=== PATIENT | male | born 1950 | race Caucasian/White ===

== ENCOUNTER 2018-04-30 21:39 | Inpatient (IN) | payer BC ==
--- NOTE | 2018-04-30 22:41 | RAD ---
CHEST TWO VIEWS: 04/30/18 HISTORY: Productive cough. COMPARISON: A 02/05/17 study. Heart size is borderline. There is increased density in the left base suggesting some left lower lobe infiltrate. The right lung appears clear. IMPRESSION: Left lower lobe infiltrate. POS: [facility]
[2018-04-30 22:45] LABS: ALT (SGPT) 23 U/L (8-55); AST (SGOT) 56 U/L (5-34); Albumin 1.7 g/dL (3.4-4.8); Alkaline Phosphatase 122 U/L (40-150); Anion Gap 6 mmol/L (10-20); Anisocytosis SLIGHT = 6-15 cells (100X) (0-5/hpf); BUN (Urea Nitrogen) 11 mg/dL (8.4-25.7); Band 1 % (5-11); Bilirubin, Total 2.2 mg/dL (0.2-1.2); Calc. Creatinine Clearance 0 mL/min (70-130); Calcium 9.8 mg/dL (7.8-10.44); Carbon Dioxide 23 mmol/L (23-31); Chloride 99 mmol/L (98-107); Eosinophils 6 % (0-10); Estimated GFR-MDRD 77; Globulin 8.7 g/dL (2.4-3.5); Glucose 127 mg/dL (80-115); Hemoglobin 10.4 g/dL (14.0-18.0); Hypochromia SLIGHT = 6-15 cells (100X) (0-5/hpf); Lymphocytes 16 % (21-51); MDiff Complete? YES; Macrocytosis SLIGHT = 6-15 cells (100X) (0-5/hpf); Mean Corpuscular HGB CONC 34.1 g/dL (32.0-36.0); Mean Corpuscular Hemoglobin 34.2 pg (27.0-31.0); Mean Platelet Volume 10.8 fL (7.4-10.4); Monocytes 4 % (0-10); Neutrophil 73 % (42-75); Platelet Count 122 thou/uL (130-400); Protein, Total 10.4 g/dL (5.8-8.1); RBC Distribution Width 13.1 % (11.5-14.5); Red Blood Cell (RBC) Count 3.05 mill/uL (4.70-6.10); Sodium 124 mmol/L (136-145); Target Cells SLIGHT = 2-5 cells (100X) (0-1/hpf)
[2018-04-30 22:46] LABS: Troponin I Less than 0.010 ng/mL (< 0.028)
[2018-04-30 23:00] LABS: Bilirubin Negative (Negative); Blood, Urine Small (Negative); Clarity Clear (Clear); Glucose, Urine (Dipstick) Negative (Negative); Leukocyte Negative (Negative); Nitrite Negative (Negative); Protein, Urine (Dipstick) Negative (Neg-Trace); pH, Urine 6.5 (5.0-9.0)
[2018-04-30 23:03] LABS: White Blood Cell (WBC) Count 9.8 thou/uL (4.8-10.8)
[2018-04-30] MEDS ORDERED: Lorazepam 1 MG TAB ONE (23:05)
[2018-04-30 23:06] LABS: Bacteria/HPF None Seen HPF (None Seen); Hyaline Casts/LPF 0-3 HYALINE CAST LPF (0-3 Hyaline); Squamous Epithelial 0-3 HPF (0-3); WBC/HPF 0-3 HPF (0-3)
[2018-04-30] MEDS ORDERED: cefTRIAXone\\ROCEPHIN 1 GM VIAL ONE ×2 (23:06→23:12)
[2018-04-30] MEDS ORDERED: Amlodipine 5 MG TAB ONE (23:06)
[2018-04-30] MEDS ORDERED: Acetaminophen 325 MG TAB ONE (23:41)
[2018-04-30] MEDS ORDERED: Nitroglycerin 0.4 MG TAB (25 Tab Bottle) ONE (23:48)
[2018-05-01] MEDS ORDERED: Furosemide 20 MG/2 ML VIAL ONE (00:01)
[2018-05-01] MEDS ORDERED: Nitroglycerin 0.4 MG TAB (25 Tab Bottle) ONE (00:01)
[2018-05-01] MEDS ORDERED: Nitroglycerin 2% Ointment 1 INCH/1 GM Packet ONE (00:02)
[2018-05-01] MEDS ORDERED: Azithromycin 500 MG VIAL ONE (00:08)
[2018-05-01] MEDS ORDERED: Ondansetron ODT 4 MG TAB SL PRN (01:22)
[2018-05-01] MEDS ORDERED: Acetaminophen 325 MG TAB PO PRN (01:22)
[2018-05-01] MEDS ORDERED: Ondansetron HCl/PF 4 MG/2 ML Vial IVP PRN (01:22)
[2018-05-01] MEDS ORDERED: Bisacodyl 5 MG TAB PO PRN (04:46)
[2018-05-01] MEDS ORDERED: Furosemide 40 MG/4 ML VIAL SLOW IVP SCH (05:00)
[2018-05-01 06:03] LABS: INR-International Normal Ratio 1.7; PTT 35.5 SEC (22.9-36.1); Prothrombin Time 19.8 SEC (12.0-14.7)
[2018-05-01 07:40] LABS: Legionella Urinary Ag Negative (Negative); Strep pneumo Urine Ag NEGATIVE (NEGATIVE)
[2018-05-01] MEDS: Ferrous Sulfate 325 MG TAB PO SCH ×2 (08:47→21:00)
[2018-05-01] MEDS: Hydrochlorothiazide 25 MG TAB PO SCH (08:47)
[2018-05-01] MEDS: Rifaximin 550 MG TAB PO SCH ×2 (08:48→20:46)
[2018-05-01] MEDS: Losartan 25 MG TAB PO SCH (08:48)
[2018-05-01] MEDS ORDERED: Famotidine/PF 20 mg/2ml Vial SLOW IVP SCH (09:00)
[2018-05-01] MEDS ORDERED: Non-Formulary Item 1 EACH (Losartan/Hydrochlorothiazide [Losartan-Hctz 100-12.5 Mg Tab] 1 PO SCH (09:00)
[2018-05-01] MEDS ORDERED: Non-Formulary Item 1 EACH (Omeprazole [Omeprazole] 20 MG) PO SCH (09:00)
--- NOTE | 2018-05-01 13:24 | CON ---
DATE OF CONSULTATION: 05/01/2018 HISTORY OF PRESENT ILLNESS: A 67-year-old gentleman sees a Dr. Osei and Dr. Sierra. His is in the room who states the patient had a cough now for several days associated with some yellow sputum. He felt bad. He has had chills and sweats. X-ray shows a left retrocardiac infiltra te. He smokes from time to time, but apparently not regularly. He denies any previous history of pneumon ia, TB or asthma. He has hepatitis unknown for a long time by doctors in [place] locally. PAST SURGICAL HISTORY: Included previous lap associated with apparently removal of his spleen, pancr eas. MEDICATIONS: From home includes, losartan, Xifaxan 550 once a day, omeprazole once a day, Zenpep onc e a day, cough syrup. He also takes Coreg 12.5 twice a day. ALLERGIES: MORPHINE. SOCIAL HISTORY: Alcohol abuse. REVIEW OF SYSTEMS: Ten-point negative. PHYSICAL EXAMINATION: GENERAL: Sats at 90 on 2 liters, temperature 98, pulse , respirations 18, blood pressure . CHEST: Extensive rhonchi and crackles bilaterally. CARDIOVASCULAR: Normal S1, S2. No gallops. ABDOMEN: Soft, no masses. LABORATORY: White count 9000, H and H 10 and 30, platelet count is 122. Sodium is 124. Electrolyte s are normal. BNP is 723. Renal function is normal. IMPRESSION: 1. Left-sided pneumonia 2. Elevated BNP. 3. Cirrhosis status post laparoscopy. PLAN: He probably can be transferred out of the MICU. Switch him to oral antibiotics. I have an ec hocardiogram to assess his LV function. Supportive care and PT. We will follow. Consultation note 70 minutes, 50% spent in direct patient care time.
--- NOTE | 2018-05-01 14:12 | PDOC.PN ---
- Subjective Encounter Start Date: 05/01/18 Encounter Start Time: 09:20 Pt seen for followup re: acute hypoxic respiratory failure. Feels better. Denies chest pain, shortness of breath, fevers or chills. Cough+, sputum+ - Objective Resuscitation Status: Resuscitation Status FULL:Full Resuscitation MAR Reviewed: Yes Vital Signs & Weight: Vital Signs (12 hours) Temp Pulse Resp BP Pulse Ox 05/01/18 11:04 99.5 F 80 18 109/56 L 94 L 05/01/18 08:00 98 05/01/18 07:14 98.9 F 80 18 110/55 L 98 05/01/18 04:00 100.0 F H 86 22 H 128/66 96 05/01/18 02:41 79 05/01/18 02:19 100.8 F H 81 27 H 100 Weight Weight 208 lb 8.917 oz I&O: 04/30/18 05/01/18 05/02/18 06:59 06:59 06:59 Intake Total 150 Output Total 100 Balance 50 Result Diagrams: 04/30/18 22:15 04/30/18 22:15 EKG Reviewed by me: Yes (Tele: NSR) Phys Exam - Physical Examination Constitutional: NAD HEENT: moist MMs, sclera anicteric, oral pharynx no lesions, 2+ tonsils Neck: no nodes, no JVD, supple, full ROM Respiratory: no rales, no rhonchi Vidal crackles Cardiovascular: RRR, no rub S1, S2 Gastrointestinal: soft, non-tender, no distention, positive bowel sounds Neurological: moves all 4 limbs Psychiatric: normal affect, A&O x 3 Dx/Plan (1) Acute respiratory failure with hypoxia Code(s): J96.01 - ACUTE RESPIRATORY FAILURE WITH HYPOXIA Status: Acute Comment: Likely a combination of pneumonia and CHF (2) Pneumonia Code(s): J18.9 - PNEUMONIA, UNSPECIFIED ORGANISM Status: Acute Comment: continue IV antibiotics as below (3) Diastolic CHF, acute Code(s): I50.31 - ACUTE DIASTOLIC (CONGESTIVE) HEART FAILURE Status: Acute Comment: continue furosemide (4) HTN (hypertension) Code(s): I10 - ESSENTIAL (PRIMARY) HYPERTENSION Status: Acute Comment: controlled (5) Cirrhosis Code(s): K74.60 - UNSPECIFIED CIRRHOSIS OF LIVER Status: Chronic Comment: probably fluid buildup from cirrhosis, continue furosemide (6) GERD (gastroesophageal reflux disease) Code(s): K21.9 - GASTRO-ESOPHAGEAL REFLUX DISEASE WITHOUT ESOPHAGITIS Status: Chronic Comment: stable (7) Heart valve vegetation Code(s): I33.0 - ACUTE AND SUBACUTE INFECTIVE ENDOCARDITIS Status: Suspected Comment: consult cardiology for ? heart valve vegetation on 2D echo - Plan * . Review of Systems - Review of Systems Constitutional: negative: fever, chills, sweats, weakness, malaise Respiratory: Cough, SOB with Excertion, Sputum. negative: Dry, Shortness of Breath, Hemoptysis, Pleuritic Pain, Wheezing Cardiovascular: negative: chest pain, palpitations, orthopnea, paroxysmal nocturnal dyspnea, edema, light headedness Gastrointestinal: negative: Nausea, Vomiting, Abdominal Pain, Diarrhea, Constipation, Melena, Hematochezia Genitourinary: negative: Dysuria, Frequency, Incontinence, Hematuria, Retention Skin: negative: Rash, Lesions, Mike, Bruising - Medications/Allergies Allergies/Adverse Reactions: Allergies Allergy/AdvReac Type Severity Reaction Status Date / Time morphine Allergy Verified 05/01/18 02:09 Medications: Current Medications Bisacodyl (Dulcolax) 10 mg PO DAILYPRN PRN PRN Reason: Constipation Ferrous Sulfate (Feosol) 325 mg PO BID [facility] Last Admin: 05/01/18 08:47 Dose: 325 mg Hydrochlorothiazide (Hydrochlorothiazide) 12.5 mg PO DAILY [facility] Last Admin: 05/01/18 08:47 Dose: 12.5 mg Azithromycin 500 mg/ Sodium (Chloride) 250 mls @ 250 mls/hr IVPB Q24HR@2359 [facility] Levofloxacin 750 mg/ Device 150 mls @ 100 mls/hr IVPB Q24HR [facility] Last Admin: 05/01/18 05:37 Dose: 150 mls Losartan Potassium (Cozaar) 100 mg PO DAILY [facility] Last Admin: 05/01/18 08:48 Dose: 100 mg Miscellaneous Medication (Pharmacy To Dose) 0 each IVPB PRN PRN PRN Reason: RENAL ABX Pharmacy to Dose Mometasone Furoate/Formoterol Fumar (Dulera 200 Mcg/5 Mcg Inhaler) 2 puff INH BID-RT [facility] Pantoprazole Sodium (Protonix) 40 mg PO DAILY [facility] Last Admin: 05/01/18 08:48 Dose: 40 mg Pneumococcal 13-Valent Conj Vacc (Prevnar) 0.5 ml IM .ONCE ONE Stop: 05/02/18 09:01 Rifaximin (Xifaxan) 550 mg PO BID [facility] Last Admin: 05/01/18 08:48 Dose: 550 mg Sodium Chloride (Flush - Normal Saline) 10 ml IVF Q12HR [facility] Sodium Chloride (Flush - Normal Saline) 10 ml IVF PRN PRN PRN Reason: Saline Flush
[2018-05-01] MEDS: Mometasone/Formoterol 120 PUFF INHALER INH SCH (19:56)
--- NOTE | 2018-05-01 20:37 | HP ---
CHIEF COMPLAINT: Shortness of breath and cough. HISTORY OF PRESENT ILLNESS: This is a 67-year-old male with past medical history of hepatitis, liver cirrhosis, abdominal hernia, hypertension, presenting with cough and shortness of breath. Per the p atient, he stated that he felt like he was coming down with the flu, however, he has not been around any sick contacts. This has been going on for a couple of days and the patient felt he was going to get worse, but progressively got worse. The patient was not able to really catch his breath. He was having shortness of breath and subjective fevers and also the patient was having some flank pain due to constant cough that he was having. Therefore, the patient went to [place] [facility] and the pat ient was evaluated. At [place], the patient's oxygen saturation was low even though the elías ent was on 4 liters. The patient was satting at 92 at that time. The patient was put on CPAP. The patient's blood pressure was elevated at the time, also had 200 systolic and the patient also had a f ever and a chest x-ray showed possible infiltrates. Therefore, the patient was transferred to our [facility] for us further workup the patient. REVIEW OF SYSTEMS: Positive for subjective fevers, malaise, shortness of breath and cough. Otherwis e documented in HPI. All other systems were reviewed and are negative. PAST MEDICAL HISTORY: Liver disease, abdominal hernia, hypertension. PAST SURGICAL HISTORY: The patient had part of his pancreas removed. FAMILY HISTORY: Reviewed and noncontributory. SOCIAL HISTORY: The patient worked at a chemical plant for years and the patient stated that he was working with a chemical called styrene, which patient inhaled a lot of this chemical and that was one of the attributing factor for his hepatitis and his liver disease. The patient also thinks that the se chemicals could be contributing to shortness of breath. The patient denies alcohol use, denies to bacco use, and denies any illicit drugs. MEDICATIONS: The patient is on; 1. Losartan/hydrochlorothiazide 100 mg/12.5 mg. 2. Xifaxan 550 mg. 3. Omeprazole 20 mg daily. 4. Zenpep 15,000 units/51,000 units/82,000 units. 5. Ferrous sulfate 325 mg b.i.d. 6. Diltiazem 30 mg/5 mL. 7. Mucinex. 8. Carvedilol 25 mg. PHYSICAL EXAMINATION: VITAL SIGNS: Blood pressure 193/104, pulse 88, respiratory rate of 24, temperature of 99.2, O2 sat o f 85 room air. GENERAL: Patient is alert, oriented, on a BiPAP machine, does not appear to be in any acute distress . HEENT: Normocephalic, atraumatic. Pupils are equal, round, and reactive to light. Extraocular move ments are intact. Pharynx is injected bilaterally, otherwise mucous membranes are moist. LUNGS: Patient do have some rales that is noted especially in the left lung. No wheezing can be lily reciated at the anterior lung lemus. CARDIAC: Positive S1 and S2, regular rate and rhythm. No murmurs, no gallops, no rubs appreciated. ABDOMEN: Nondistended, nontender, positive bowel sounds in all quadrants. No peritoneal signs. EXTREMITIES: Upper extremity; the patient has 5/5 upper extremity strength and 5/5 lower extremity s trength. No ecchymosis. No abrasions. NEUROLOGIC: Cranial nerves II through XII grossly intact. No neurologic deficit noted. SKIN: Warm, dry, and intact. PSYCHIATRIC: Alert and oriented x3. Normal affect. EKG: A 12-lead EKG is normal. The patient has normal sinus rhythm and heart rate of 93. ED COURSE: The patient was on morphine 2 mg, , nitro patch , Lasix 20 mg were given, nitro sublingual 0.4, normal saline 150, Tylenol 650 mg, DuoNeb 3 mL, ceftriaxone 1 g, Ativan 0.5, and aml odipine 5. LABORATORY DATA: WBC 9.8, hemoglobin 10.4, hematocrit 30.6, MCV 100.0, platelet count 122. PT 19.8, INR 1.7, PTT 35.5. Sodium is 124, potassium 4.0, chloride 99, carbon dioxide of 23, anion gap of 6, BUN is 11, creatinine 0.98, GFR 77, glucose 127. Lactic acid of 1.9, total bilirubin 2.2, AST 56, A LT 23. BNP 723. Urinalysis is negative. Pneumonia antigens and strep antigens are negative. IMAGING DATA: Chest x-ray showed left lower lobe infiltrate. ASSESSMENT AND PLAN: This is a 67-year-old male presenting to the hospital and been admitted for; 1. Shortness of breath likely due to pneumonia or fluid overload. At this point, we have given the patient Lasix IV. Chest x-ray shows that there is some infiltrate in the lungs and this can be a com bination of fluid or possible pneumonia. The patient is on BiPAP. We are going to change the patien t from BiPAP to nasal cannula and we will transition the patient to the regular floor if patient is a ble to tolerate nasal cannula. We started the patient on empiric antibiotics. We have Pulmonology o n consult. We will follow up with canoe inspector's recommendations. We have ordered a pneumonia pane l which everything so far has been negative. The patient is on broad coverage. Patient is on azithr omycin and Levaquin which will cover both atypical and typical bacteria. 2. Bilateral trace edema. We are highly suspicious that patient might have underlying heart issue. Therefore, at this point, we will get an echo to examine the heart and we will continue the patient on Lasix. It is also important that the patient's bilateral trace pedal edema can be due to patient' s history of cirrhosis. 3. History of chemical plant occupation. They can also be that there is some underlying pneumoconio sis since the patient stated that he has been inhaling this chemical called styrene because the patie nt used to work with these chemicals in a chemical plant. Sql Report Analyst on the case. We will follow with their recommendations. At this point, the patient is saturating well. We will continue to mon itor the patient. 4. We will continue patient on his home medications and we will continue to monitor the patient and treat the patient accordingly. 5. DVT and gastrointestinal prophylaxis. The patient's INR is 1.7. The patient has history of cirr hosis. At this point, we are not going to do any anticoagulation. We will do SCDs. 6. Macrocytic anemia. We will monitor the patient's H and H. We will do B12 and folate. 7. Hyponatremia, likely SIADH. We will monitor patient's sodium in the morning and we will follow t he trend and we will treat the patient accordingly by fluid restriction.
[2018-05-01] MEDS ORDERED: Azithromycin 500 MG in Sodium Chloride 0.9% 250 ML 250 ML IVPB SCH (23:59)
[2018-05-02 04:28] LABS: Band 36 % (5-11); Eosinophils 1 % (0-10); Hemoglobin 9.7 g/dL (14.0-18.0); Lymphocytes 12 % (21-51); MDiff Complete? YES; Macrocytosis MODERATE=16-30 cells (100X) (0-5/hpf); Mean Corpuscular HGB CONC 32.9 g/dL (32.0-36.0); Mean Corpuscular Hemoglobin 35.2 pg (27.0-31.0); Mean Platelet Volume 10.2 fL (7.4-10.4); Monocytes 5 % (0-10); Neutrophil 46 % (42-75); PLT Morphology Comment Appears Adequate; Platelet Count 126 thou/uL (130-400); RBC Distribution Width 14.4 % (11.5-14.5); Red Blood Cell (RBC) Count 2.76 mill/uL (4.70-6.10); White Blood Cell (WBC) Count 14.1 thou/uL (4.8-10.8)
[2018-05-02 04:30] LABS: ALT (SGPT) 15 U/L (8-55); AST (SGOT) 38 U/L (5-34); Albumin 1.4 g/dL (3.4-4.8); Alkaline Phosphatase 78 U/L (40-150); Anion Gap 8 mmol/L (10-20); BUN (Urea Nitrogen) 25 mg/dL (8.4-25.7); Bilirubin, Total 2.6 mg/dL (0.2-1.2); Calc. Creatinine Clearance 80 mL/min (70-130); Calcium 9.4 mg/dL (7.8-10.44); Carbon Dioxide 20 mmol/L (23-31); Chloride 99 mmol/L (98-107); Estimated GFR-MDRD 59; Globulin 6.5 g/dL (2.4-3.5); Glucose 97 mg/dL (80-115); Potassium 3.7 mmol/L (3.5-5.1); Protein, Total 7.9 g/dL (5.8-8.1); Sodium 123 mmol/L (136-145)
[2018-05-02] MEDS: Furosemide 20 MG/2 ML VIAL SLOW IVP SCH ×3 (06:25→17:39)
[2018-05-02] MEDS: Mometasone/Formoterol 120 PUFF INHALER INH SCH ×2 (06:35→19:45)
[2018-05-02] MEDS ORDERED: Prevnar 13-Val Conj/PF 0.5 ML SYRINGE IM ONE (09:00)
[2018-05-02] MEDS: Losartan 25 MG TAB PO SCH (11:05)
[2018-05-02] MEDS: Hydrochlorothiazide 25 MG TAB PO SCH (11:06)
[2018-05-02] MEDS: Rifaximin 550 MG TAB PO SCH ×2 (11:07→21:37)
[2018-05-02] MEDS: Ferrous Sulfate 325 MG TAB PO SCH ×2 (11:07→21:37)
--- NOTE | 2018-05-02 12:04 | CON ---
DATE OF CONSULTATION: 05/01/2018 REASON FOR CONSULTATION: ? vegetation. HISTORY OF PRESENT ILLNESS: Mr. Galicia is a very pleasant 67-year-old gentleman who was seen and evaluated in the past. He has a history of cirrhosis with esophageal varices. He recently presented with fevers and chills. His states this began fairly quickly. He did have subjective fevers at home in addition to productive cough. He was diagnosed with pneumonia. He underwent an echo with Doppler that showed a suggestion of vegetation versus artifact noted on the LVOT. LVEF appears normal. He has no previous history of vegetations. No significant valvular dysfunction was present. PAST MEDICAL HISTORY: As above including hypertension, venous insufficiency, partial pancreas removal. SOCIAL HISTORY: No current tobacco or alcohol use. MEDICATIONS: Include omeprazole, Zenpep, iron sulfate, diltiazem, losartan/ hydrochlorothiazide, omeprazole, Mucinex, and carvedilol. REVIEW OF SYSTEMS: Ten point review of systems is reviewed and as above, otherwise negative. PHYSICAL EXAMINATION: GENERAL: Patient is a pleasant male who is in no acute distress. The patient appears his stated age. VITAL SIGNS: Blood pressure 150/60 pulse 80, respirations 20. NEUROLOGIC: The patient is alert and oriented times 3 with no focal neurologic deficits. HEENT: Sclerae without icterus. Mouth has moist mucous membranes with normal pallor. NECK: No JVD. Carotid upstroke brisk. No bruits bilaterally. LUNGS: Clear to auscultation with unlabored respirations. BACK: No scoliosis or kyphosis. CARDIAC: Regular rate and rhythm with normal S1 and S2. No S3 or S4 noted. No significant rubs, murmurs, thrills, or gallops noted throughout the precordium. PMI is not displaced. There is no parasternal heave. ABDOMEN: Soft, nontender, nondistended. No peritoneal signs present. No hepatosplenomegaly. No abnormal striae. EXTREMITIES: 2+ femoral and 2+ dorsalis pedis pulses. No cyanosis, clubbing, or edema. SKIN: No gross abnormalities. PERTINENT LABORATORY DATA: Hemoglobin 9.7, creatinine 1.23. Albumin 1.4, globulin 6.5. IMAGING: Chest x-ray shows left lower lobe infiltrate. IMPRESSION: 1. Pneumonia. 2. ? vegetation. 3. Liver disease with cirrhosis and esophageal varices. RECOMMENDATIONS: I will ask Dr. Madsen to assess Mr. Galicia for potential KRYSTLE. At this point, I am unsure whether this is going to change his management. His blood culture so far is negative. He would be certainly increased risk of complications given esophageal varices. The patient was very reluctant to proceed if needed. Dr. Madsen did state he was going to consult with Dr. Villegas. This ? vegetation could certainly also be artifact. No significant murmur present with no significant valvular dysfunction was noted. Continue antibiotic treatment. MTDD
--- NOTE | 2018-05-02 12:10 | PDOC.CTH ---
Cardiology Progress Note - Subjective Still with mild SOB and ADAM. No CP. - Objective Vital Signs Pulse Resp 05/02/18 06:35 80 12 Weight 208 lb 8.917 oz 05/01/18 05/02/18 05/03/18 06:59 06:59 06:59 Intake Total 150 600 Output Total 100 Balance 50 600 - Physical Examination General/Neuro: alert & oriented x3 Neck: no JVD present Lungs: CTA Heart: RRR Abdomen: NT/ND Extremities: other: (no edema) - Telemetry Telemetry Rhythm: no tele - Labs Result Diagrams: 05/02/18 03:46 05/02/18 03:46 Troponin/CKMB CK-MB (CK-2) 1.0 ng/mL (0-6.6) 04/30/18 22:15 Troponin I Less than 0.010 ng/mL (< 0.028) 04/30/18 22:15 - Assessment/Plan 1. Left sided PNA 2. Nonspecific AV leaflet thickening 3. History of cirrhosis and esophageal varices NO changes today. Blood cultures still pending. Request for KRYSTLE previously made , but will discuss risk with GI first and await final culture results.
--- NOTE | 2018-05-02 13:12 | PRG ---
DATE OF SERVICE: 05/02/2018 SUBJECTIVE: He is doing well. He has less cough, less shortness of breath. He has got some blood i n his sputum. His tells me that when he walks even to the bathroom, he is weak and short of anthony ath. OBJECTIVE: VITAL SIGNS: His sats are 96 on room air, respirations 20, pulse 82, temperature 98, blood pressure 115/58. CHEST: Reveals no wheezing or crackles. CARDIAC: Normal S1 and S2. No gallops. ABDOMEN: No masses. LABORATORY DATA: Creatinine 1.23. Sodium is 123, albumin is 1.5. His AST is 38. Total bilirubin i s 2.6 and platelet count is 126. IMPRESSION: Left lower lobe pneumonia, congestive heart failure, cirrhosis. PLAN: His echocardiogram performed yesterday was suggestive of maybe a vegetation on his aortic valv e as per the report, though his EF was normal. cirrhosis. The patient is severely deconditioned. He is hyponatremic, probably from the diuretics that he is ge tting. I may consider discontinuing his Lasix and his hydrochlorothiazide. I would discontinue his Zithromax. Continue his Levaquin. Await cultures. We will follow.
--- NOTE | 2018-05-02 16:41 | PDOC.PN ---
- Subjective Encounter Start Date: 05/02/18 Encounter Start Time: 07:00 Pt sen for followup re: hyponatremia. feels better. Denies chest pain, shortness of breath, fevers or chills. Cough+, sputum+ - Objective Resuscitation Status: Resuscitation Status FULL:Full Resuscitation MAR Reviewed: Yes Vital Signs & Weight: Vital Signs (12 hours) Pulse Resp BP Pulse Ox 05/02/18 14:00 84 121/58 L 05/02/18 08:00 94 L 05/02/18 06:35 80 12 Weight Weight 208 lb 8.917 oz I&O: 05/01/18 05/02/18 05/03/18 06:59 06:59 06:59 Intake Total 150 600 Output Total 100 Balance 50 600 Result Diagrams: 05/02/18 03:46 05/02/18 03:46 Additional Labs: Labs reviewed by me Phys Exam - Physical Examination Constitutional: NAD HEENT: moist MMs, sclera anicteric, oral pharynx no lesions, 2+ tonsils Neck: no nodes, no JVD, supple, full ROM Respiratory: no wheezing, no rhonchi Vidal crackles Cardiovascular: RRR, no rub S1, S2 Gastrointestinal: soft, non-tender, no distention, positive bowel sounds Neurological: moves all 4 limbs Psychiatric: normal affect, A&O x 3 Dx/Plan (1) Hyponatremia Code(s): E87.1 - HYPO-OSMOLALITY AND HYPONATREMIA Status: Acute Comment: DC HCTZ, restrict oral fluid intake to 1500 ml/;25 hr, recheck sodium. Initiate workup with serum and urine osmolality. (2) Acute respiratory failure with hypoxia Code(s): J96.01 - ACUTE RESPIRATORY FAILURE WITH HYPOXIA Status: Acute Comment: Improving,likely due to a combination of pneumonia and CHF (3) Pneumonia Code(s): J18.9 - PNEUMONIA, UNSPECIFIED ORGANISM Status: Acute Comment: continue IV leofloxacin (4) Diastolic CHF, acute Code(s): I50.31 - ACUTE DIASTOLIC (CONGESTIVE) HEART FAILURE Status: Acute Comment: change furosemide to oral (5) HTN (hypertension) Code(s): I10 - ESSENTIAL (PRIMARY) HYPERTENSION Status: Chronic Comment: controlled (6) Cirrhosis Code(s): K74.60 - UNSPECIFIED CIRRHOSIS OF LIVER Status: Chronic Comment: on oral furosemide (7) GERD (gastroesophageal reflux disease) Code(s): K21.9 - GASTRO-ESOPHAGEAL REFLUX DISEASE WITHOUT ESOPHAGITIS Status: Chronic Comment: stable (8) Heart valve vegetation Code(s): I33.0 - ACUTE AND SUBACUTE INFECTIVE ENDOCARDITIS Status: Suspected Comment: ID consult pending re: does pt need KRYSTLE before blood culture final report? - Plan * . Review of Systems - Review of Systems Constitutional: weakness. negative: fever, chills, sweats, malaise Respiratory: Cough, SOB with Excertion, Sputum. negative: Dry, Shortness of Breath, Hemoptysis, Pleuritic Pain, Wheezing Cardiovascular: negative: chest pain, palpitations, orthopnea, paroxysmal nocturnal dyspnea, edema, light headedness Gastrointestinal: negative: Nausea, Vomiting, Abdominal Pain, Diarrhea, Constipation, Melena, Hematochezia Genitourinary: negative: Dysuria, Frequency, Incontinence, Hematuria, Retention Skin: negative: Rash, Lesions, Mike, Bruising Neurological: Weakness - Medications/Allergies Allergies/Adverse Reactions: Allergies Allergy/AdvReac Type Severity Reaction Status Date / Time morphine Allergy Verified 05/01/18 02:09 Medications: Current Medications Bisacodyl (Dulcolax) 10 mg PO DAILYPRN PRN PRN Reason: Constipation Ferrous Sulfate (Feosol) 325 mg PO BID [facility] Last Admin: 05/02/18 11:07 Dose: 325 mg Furosemide (Lasix) 20 mg SLOW IVP 0600,1400 [facility] Last Admin: 05/02/18 15:07 Dose: Not Given Levofloxacin 750 mg/ Device 150 mls @ 100 mls/hr IVPB Q24HR [facility] Last Admin: 05/02/18 06:25 Dose: 150 mls Losartan Potassium (Cozaar) 100 mg PO DAILY [facility] Last Admin: 05/02/18 11:05 Dose: 100 mg Miscellaneous Medication (Pharmacy To Dose) 0 each IVPB PRN PRN PRN Reason: RENAL ABX Pharmacy to Dose Mometasone Furoate/Formoterol Fumar (Dulera 200 Mcg/5 Mcg Inhaler) 2 puff INH BID-RT [facility] Last Admin: 05/02/18 06:35 Dose: 2 puff Pantoprazole Sodium (Protonix) 40 mg PO DAILY [facility] Last Admin: 05/02/18 11:07 Dose: 40 mg Rifaximin (Xifaxan) 550 mg PO BID [facility] Last Admin: 05/02/18 11:07 Dose: 550 mg Sodium Chloride (Flush - Normal Saline) 10 ml IVF Q12HR [facility] Last Admin: 05/02/18 15:07 Dose: Not Given Sodium Chloride (Flush - Normal Saline) 10 ml IVF PRN PRN PRN Reason: Saline Flush
--- NOTE | 2018-05-02 18:31 | CON ---
DATE OF CONSULTATION: 05/02/2018 REASON FOR CONSULTATION: Abnormalities noted in the echocardiogram. HISTORY OF PRESENT ILLNESS: A 67-year-old patient with a history of liver cirrhosis, possibly due to autoimmune hepatitis, treated in the past with immunosuppressive medication in [place]. Also, with a history of esophageal varices and prior splenectomy. The patient had been on a transplant list, but he was removed from that because his MELD score was not high enough. During the time that he was in the transplant list, he had a resection of the pancreatic tail because of a potential malignancy which turned out not to be cancer after all. He also had a kidney lesion in the past which was frozen, but it is not clear if it was a malignancy or not. This time, he developed a cough with yellow sputum production, dyspnea and pain in the left side of his chest which was pleuritic in characteristic with progression. Eventually, he ended up in [facility] and admitted to [facility]. Initial findings included blood pressure 190/104, pulse 88, respirations 24, temperature 99.2, O2 sat 85%. He was alert, BiPAP machine. Inspiratory crackles noted, particularly left side. Heart exam was normal. Abdomen was not distended and not tender. He was moving all extremities equally. LABORATORY DATA: Initial labs: White cell count 9.8, hemoglobin 10.4, platelets 122 with 72% neutrophils, 1% bands. INR 1.7. Sodium 124, creatinine was 0.98 with a bilirubin 2.2 and AST 56. Serum total protein 10.4, albumin 1.7. Urinalysis was normal. The patient had a legionella and strep pneumonia antigen both were negative and a chest x-ray on admission with increased density in the left base with possible left lower lobe infiltrate. The patient had an echocardiogram, which showed a moderately thickened aortic valve with a possible small abnormality, which could be a vegetation. Currently, he is feeling better, he is still with general malaise, but not as much. Cough has subsided. Chest pain has improved. No headaches, visual symptoms, sore throat, odynophagia, or dysphagia. The back pain has improved. The sputum production has decreased significantly. No abdominal pain. No genitourinary symptoms, no joint symptoms. No neurological symptoms. PAST MEDICAL HISTORY: Includes, cirrhosis of the liver, possible autoimmune hepatitis. treated in the past with prednisone, which has been discontinued. The patient had been on a transplant list, he was removed from the transplant list recently because his MELD score was not high enough to meet criteria. The patient has had a partial pancreatectomy as part of the workup for liver transplant because of the possibility of malignancy which was not confirmed after all. He also had a liver lesion, which was frozen, it is not clear if it was truly a malignancy or not. History of hypertension, abdominal hernia. FAMILY HISTORY: Noncontributory. 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 Never a smoker. CURRENT MEDICATIONS: Azithromycin, Dulcolax, Feosol, Lasix, hydrochlorothiazide , levofloxacin, Cozaar, pantoprazole, rifaximin. ALLERGY: MORPHINE is more or less adverse reaction than a true hypersensitivity reaction. PHYSICAL EXAMINATION: VITAL SIGNS: T-max 102.3, currently 98, blood pressure 115/58, pulse 82, respirations 20, O2 sat 96%. SKIN: Few spider angiomata to the anterior chest skin area. Peripheral IV access. No Dumont catheter. No lymphadenopathy. HEENT: Ocular movements conjugate. Oral cavity moist. NECK: Supple. LUNGS: With symmetric air entry with egophony in the left side around mid lung region, a little bit of wheezing, a few crackles. CARDIOVASCULAR: S1, S2, regular rate without murmurs. ABDOMEN: Soft and not distended or tender. No ascites. No bladder distention , no organomegaly. EXTREMITIES: No joint inflammatory activity. Pulses are 1+ dorsalis pedis. Plantar responses are flexure. No clonus, no edema. Moves extremities equally. NEUROLOGIC: Cognitive function appears to be intact. No asterixis LABORATORY DATA: The followup labs showed a white cell count 14.1, hemoglobin 9.7, platelets 126, 36% bands. Sodium 123, creatinine 1.3-3, AST 38, bilirubin 2.6, albumin 1.4. ASSESSMENT: 1. Cirrhosis of liver with portal hypertension and esophageal varices, possibly secondary to autoimmune hepatitis or exposure to industrial chemical products during his work activities in the past. 2. Splenectomy state. 3. Abnormal echocardiogram. 4. Abnormal findings on lung exam with purulent sputum production, fever, neutrophilia and bandemia. DISCUSSION: Differential diagnosis includes community-acquired pneumonia with the usual pathogens, which seems to be improving under treatment at this time. Regarding the possibility of endocarditis, the absence of positive blood cultures, argues against this possibility, although only a KRYSTLE would be able to further evaluate the abnormalities seen in the transthoracic echo. In his case , the procedure would be frought with danger in view of the presence of esophageal varices. I would recommend treating this patient for community- acquired pneumonia and follow up blood cultures in the outpatient setting. The possibility of opportunistic pathogens causing the pneumonia is to be considered, although he seems to be responding clinically, so I tend to think that he wanted usual community pathogens. He is eligible for Streptococcus pneumonia, protein conjugate vaccine if it was not given yet, certainly influenza vaccine coming up in the next few weeks. MTDD
--- NOTE | 2018-05-03 07:08 | PDOC.CTH ---
Cardiology Progress Note - Subjective Feeling somewhat better today. coughing up streaky blood - Objective Vital Signs Temp Pulse Ox 05/03/18 04:00 98.6 F 05/03/18 00:00 99.3 F 05/02/18 20:00 94 L 05/02/18 19:45 94 L Weight 208 lb 8.917 oz 05/02/18 05/03/18 05/04/18 06:59 06:59 06:59 Intake Total 600 900 Balance 600 900 - Physical Examination General/Neuro: alert & oriented x3, NAD Neck: carotid US brisk, no JVD present Lungs: other: (Rhonchi present) Abdomen: NT/ND, soft Extremities: + femoral B - Labs Result Diagrams: 05/03/18 08:30 05/03/18 08:29 Troponin/CKMB CK-MB (CK-2) 1.0 ng/mL (0-6.6) 04/30/18 22:15 Troponin I Less than 0.010 ng/mL (< 0.028) 04/30/18 22:15 - Assessment/Plan 1. ?vegetation 2. Pneumonia 3. Cirrhosis BC so far negative and no new murmur No valvular dysfunction present Await recommendations fro ID Concerned about KRYSTLE in pt with esophageal varices Will follow peripherally Plan to fu in office in 1 month
[2018-05-03] MEDS: Mometasone/Formoterol 120 PUFF INHALER INH SCH ×2 (07:40→19:05)
[2018-05-03 08:41] LABS: #Eosinphils 0.2 thou/uL (0.0-0.7); #Lymphocytes 2.9 thou/uL (1.20-3.40); #Monocytes 1.1 thou/uL (0.11-0.59); #Neutrophils 6.4 thou/uL (1.40-6.50); %Basophils 0.4 % (0.0-1.0); %Eosinophils 1.7 % (0.0-10.0); %Monocytes 10.7 % (0.0-10.0); %Neutrophils 60.2 % (42.0-75.0); Hemoglobin 9.8 g/dL (14.0-18.0); Mean Corpuscular HGB CONC 32.1 g/dL (32.0-36.0); Mean Platelet Volume 9.4 fL (7.4-10.4); Platelet Count 135 thou/uL (130-400); RBC Distribution Width 14.4 % (11.5-14.5); Red Blood Cell (RBC) Count 2.89 mill/uL (4.70-6.10); White Blood Cell (WBC) Count 10.6 thou/uL (4.8-10.8)
[2018-05-03 09:04] LABS: Anion Gap 7 mmol/L (10-20); BUN (Urea Nitrogen) 22 mg/dL (8.4-25.7); Calc. Creatinine Clearance 94 mL/min (70-130); Calcium 9.7 mg/dL (7.8-10.44); Carbon Dioxide 22 mmol/L (23-31); Chloride 99 mmol/L (98-107); Estimated GFR-MDRD 71; Glucose 97 mg/dL (80-115); Potassium 3.5 mmol/L (3.5-5.1); Sodium 124 mmol/L (136-145)
[2018-05-03] MEDS: Losartan 25 MG TAB PO SCH (09:40)
[2018-05-03] MEDS: Ferrous Sulfate 325 MG TAB PO SCH ×2 (09:41→20:49)
[2018-05-03] MEDS: Rifaximin 550 MG TAB PO SCH ×2 (09:41→20:49)
[2018-05-03] MEDS: Furosemide 20 MG TAB PO SCH ×2 (09:41→15:28)
--- NOTE | 2018-05-03 10:20 | PRG ---
DATE OF SERVICE: 05/03/2018 This morning he is weak. Denies any shortness of breath. PHYSICAL EXAMINATION: VITAL SIGNS: Sats are 97% on room air, temperature is 97, blood pressure 150/73. All cultures are negative. CHEST: Chest reveals decreased breath sounds, no wheezing. CARDIAC: Normal S1, S2. No gallops. ABDOMEN: Soft, no masses. IMPRESSION: 1. Left lung pneumonia. 2. Cirrhosis. PLAN: I suggest switching him over to oral Levaquin, PT and supportive care. He could be discharged home at any time.
--- NOTE | 2018-05-03 10:28 | PDOC.PN ---
- Subjective Encounter Start Date: 05/03/18 Encounter Start Time: 07:00 Pt seen for followup re: hyponatremia. Denies chest pain, shortness of breath, fevers or chills. - Objective Resuscitation Status: Resuscitation Status FULL:Full Resuscitation MAR Reviewed: Yes Vital Signs & Weight: Vital Signs (12 hours) Temp Pulse Resp BP Pulse Ox 05/03/18 08:00 97.9 F 85 153/67 H 97 05/03/18 07:40 73 16 93 L 05/03/18 04:00 98.6 F 05/03/18 00:00 99.3 F Weight Weight 208 lb 8.917 oz I&O: 05/02/18 05/03/18 05/04/18 06:59 06:59 06:59 Intake Total 600 900 Balance 600 900 Result Diagrams: 05/03/18 08:30 05/03/18 08:29 Additional Labs: Labs reviewed by me Phys Exam - Physical Examination Constitutional: NAD HEENT: moist MMs Neck: supple Vidal crackles Cardiovascular: RRR Gastrointestinal: soft Neurological: moves all 4 limbs Psychiatric: normal affect Dx/Plan (1) Hyponatremia Code(s): E87.1 - HYPO-OSMOLALITY AND HYPONATREMIA Status: Acute Comment: Sodium 124 today, will consult nephrology for opinion. (2) Acute respiratory failure with hypoxia Code(s): J96.01 - ACUTE RESPIRATORY FAILURE WITH HYPOXIA Status: Acute Comment: Improving (3) Pneumonia Code(s): J18.9 - PNEUMONIA, UNSPECIFIED ORGANISM Status: Acute Comment: on oral levaquin (4) Diastolic CHF, acute Code(s): I50.31 - ACUTE DIASTOLIC (CONGESTIVE) HEART FAILURE Status: Acute Comment: on oral lasix (5) HTN (hypertension) Code(s): I10 - ESSENTIAL (PRIMARY) HYPERTENSION Status: Chronic Comment: controlled (6) Cirrhosis Code(s): K74.60 - UNSPECIFIED CIRRHOSIS OF LIVER Status: Chronic Comment: on oral furosemide (7) GERD (gastroesophageal reflux disease) Code(s): K21.9 - GASTRO-ESOPHAGEAL REFLUX DISEASE WITHOUT ESOPHAGITIS Status: Chronic Comment: stable (8) Heart valve vegetation Code(s): I33.0 - ACUTE AND SUBACUTE INFECTIVE ENDOCARDITIS Status: Suspected Comment: ID consult pending re: does pt need KRYSTLE before blood culture final report? - Plan * . Review of Systems - Review of Systems Respiratory: Cough, Sputum. negative: Dry, Shortness of Breath, Hemoptysis, SOB with Excertion, Pleuritic Pain, Wheezing Cardiovascular: negative: chest pain, palpitations, orthopnea, paroxysmal nocturnal dyspnea, edema, light headedness - Medications/Allergies Allergies/Adverse Reactions: Allergies Allergy/AdvReac Type Severity Reaction Status Date / Time morphine Allergy Verified 05/01/18 02:09 Medications: Current Medications Bisacodyl (Dulcolax) 10 mg PO DAILYPRN PRN PRN Reason: Constipation Ferrous Sulfate (Feosol) 325 mg PO BID [facility] Last Admin: 05/03/18 09:41 Dose: 325 mg Furosemide (Lasix) 20 mg PO 0900,1400 [facility] Last Admin: 05/03/18 09:41 Dose: 20 mg Levofloxacin (Levaquin) 500 mg PO 0600 [facility] Stop: 05/09/18 06:01 Losartan Potassium (Cozaar) 100 mg PO DAILY [facility] Last Admin: 05/03/18 09:40 Dose: 100 mg Miscellaneous Medication (Pharmacy To Dose) 0 each IVPB PRN PRN PRN Reason: RENAL ABX Pharmacy to Dose Mometasone Furoate/Formoterol Fumar (Dulera 200 Mcg/5 Mcg Inhaler) 2 puff INH BID-RT [facility] Last Admin: 05/03/18 07:40 Dose: 2 puff Pantoprazole Sodium (Protonix) 40 mg PO DAILY [facility] Last Admin: 05/03/18 09:41 Dose: 40 mg Rifaximin (Xifaxan) 550 mg PO BID [facility] Last Admin: 05/03/18 09:41 Dose: 550 mg Sodium Chloride (Flush - Normal Saline) 10 ml IVF Q12HR [facility] Last Admin: 05/03/18 09:41 Dose: 10 ml Sodium Chloride (Flush - Normal Saline) 10 ml IVF PRN PRN PRN Reason: Saline Flush
--- NOTE | 2018-05-03 11:37 | CON ---
DATE OF CONSULTATION: 05/03/2018 REASON FOR CONSULTATION: Hyponatremia. HISTORY OF PRESENT ILLNESS: This is a 67-year-old gentleman who was admitted for pneumonia and shortness of breath with cough. The patient's sodium was 124 on 04/30/2018 and 3 days later remains at 124. The patient denies headache, numbness, tingling or weakness. Denies any nausea, vomiting or chest pain. PAST MEDICAL HISTORY: Liver disease, abdominal hernia, history of hypertension. SOCIAL HISTORY: No alcohol or drug use. REVIEW OF SYSTEMS: A 15-point review of systems was performed and negative except positives noted above. GENERAL: Weakness- HEAD: Headache- NECK: No swelling or lumps. NOSE: No epistaxis or discharge. EYES: No diplopia or pain. RESPIRATORY: Dyspnea- CARDIOVASCULAR: Chest pain- GASTROINTESTINAL: Nausea- /RIGGER THIRD: Hematuria- MUSCULOSKELETAL: No joint pain. NEUROPSYCHIATIC SYSTEMS: No suicidal ideation. No ideation. SKIN: Denies any rash or ulcer. CONSTITUTIONAL: No fever or chills. ALLERGIES: Reviewed. HOME MEDICATIONS: List reviewed. PHYSICAL EXAMINATION: GENERAL: Patient is awake, alert. VITAL SIGNS: Pulse 72, breathing 16, blood pressure was 156/67. OBJECTIVE: See above. Awake, alert, in no acute distress. GENERAL APPEARANCE AND MENTAL STATUS: Fair. HEAD/NECK: Normocephalic. Atraumatic. EYES: EOMI. No deformity. EARS: Clear. No ulcers. NOSE: Intact. No lesions. MOUTH: Clear. No discharge. THROAT: Clear. No exudate. LUNGS: Clear. No crackles. CARDIAC: S1, S2. No rub. ABDOMEN: Benign. BS+. GENITALIA/RECTUM: Dumont absent. BACK/EXTREMITIES: Edema 0+ Ulcer- NEUROLOGICAL: Alert and motor intact. SKIN: Rash- Bruise- LYMPHATICS: Edema- Ulcer- LABORATORY: Potassium 3.5, creatinine 1.05, sodium 124. Osmolality 283 ASSESSMENT AND RECOMMENDATIONS: 1. Hyponatremia, most likely Pseudohyponatremia. I would recommend checking Sodium by Flame Spectrophotometry as his osmolality is normal and has elevated protein levels. Agree with stopping hydrochlorothiazide. 2. Hypertension, stable. 3. Anemia, stable. 4. Medication based on glomerular filtration rate are appropriate. No indication for hypertonic saline. MTDD
[2018-05-03 12:37] LABS: Actual Bicarbonate (HCO3a) 21.6 mEq/L (22-28); Analyzer IN Cardio OR; Base Excess (BEa) -1.2 mEq/L (-2.0 to +3.0); CO2 Tension 29.9 mmHg (35.0-45.0); Calcium, Ionized 1.35 mmol/L (1.12-1.30); Carboxyhemoglobin (COHb) 0.9 gm% (0.0-3.0); Hemoglobin (Hb) 10.6 g/dL (14.0-18.0); Potassium - ABG Lab 3.29 mmol/L (3.70-5.30); pH, Arterial 7.48 (7.35-7.45)
[2018-05-03 12:38] LABS: O2 Tension (PaO2) 59.1 mmHg (> 80.0)
[2018-05-03 12:39] LABS: ALV-art Gradient 53.255 (0-20); Puncture Site LRA
--- NOTE | 2018-05-03 13:10 | PQF ---
CLINICAL DOCUMENTATION IMPROVEMENT CLARIFICATION FORM: ICD-10 Updated PLEASE DO AN ADDENDUM TO THE PROGRESS NOTE WITH ANY DOCUMENTATION UPDATES OR ADDITIONS AND CARRY THROUGH TO DC SUMMARY. THANK YOU. DATE: ATTN: DR. NANCIE ROBLEDO / DR. ISSAC PINEDA Please exercise your independent, professional judgment in responding to the clarification form. Clinical indicators are provided on the bottom of this form for your review. Please check appropriate box(es): [ ] Sepsis due to: (PNA, UTI, gangrenous gall bladder, etc.) [ ] Severe sepsis with acute organ dysfunction of: (Examples: respiratory failure, encephalopathy, acute kidney failure, other) [ ] Localized infection without sepsis [ ] Other diagnosis [ ] Unable to determine For continuity of documentation, please document condition throughout progress notes and discharge summary. Thank You. CLINICAL INDICATORS - SIGNS / SYMPTOMS / LABS ER PRESENTATION 04/30: T: 101.6 HR: 105 RR: 45, PLACED ON CPAP IN SEVERE RESPIRATORY DISTRESS W/NASAL FLARING ADMISSION VITAL SIGNS 103: T: 102.3 RR: 32 ON BIPAP WBC: 9.8 (ON ADMIT, 04/30) 14.1 (05/02) BANDS: 36% (05/02) RISK FACTORS: L SIDED COMMUNITY ACQUIRED PNEUMONIA ACUTE RESPIRATORY FAILURE W/HYPOXIA TREATMENTS: IMCU MONITORING IV ANTIBIOTICS (AZITHROMYCIN 04/30 - ; LEVAQUIN 05/01 - PRESENT) INFECTIOUS DX CONSULT THANK YOU! Rosario (This form is maintained as a part of the permanent medical record) 2014 [employer]. All Rights Reserved Rosario Serrano RN, BSN [email or web address] Office: [phone] [facility]
[2018-05-03 13:56] LABS: Anion Gap 4 mmol/L (10-20); BUN (Urea Nitrogen) 22 mg/dL (8.4-25.7); Calc. Creatinine Clearance 86 mL/min (70-130); Calcium 9.4 mg/dL (7.8-10.44); Carbon Dioxide 25 mmol/L (23-31); Chloride 99 mmol/L (98-107); Cholesterol 105 mg/dl (< 200 Desired); Estimated GFR-MDRD 64; Glucose 122 mg/dL (80-115); HDL Cholesterol Less than 8 mg/dL (>60 Neg Risk); Potassium 3.4 mmol/L (3.5-5.1); Sodium 125 mmol/L (136-145); Triglycerides 69 mg/dL (Less than 150)
[2018-05-03 15:18] LABS: Reference Lab Name LABCORP
[2018-05-03 15:29] LABS: Ref Lab Test Ordered SODIUM BY SPECTROPHO
--- NOTE | 2018-05-03 20:33 | PDOC.EVN ---
Event Note - Event Note Event Note: Discussed with nephrology service. Likely pseudohyponatremia, with elevated total protein and globulin. Will order SPEP and UPEP to r/o multiple myeloma. Pt also awaiting sodium level by flame spectrometry. Will consult oncology.
[2018-05-04 00:09] LABS: Mycoplasma pneumoniae IgG AB 220 U/mL (0-99); Mycoplasma pneumoniae IgM AB Less than 770 U/mL (0-769)
[2018-05-04] MEDS: Mometasone/Formoterol 120 PUFF INHALER INH SCH ×2 (06:13→18:26)
[2018-05-04] MEDS: Losartan 25 MG TAB PO SCH (08:28)
[2018-05-04] MEDS: Ferrous Sulfate 325 MG TAB PO SCH ×2 (08:29→21:39)
[2018-05-04] MEDS: Rifaximin 550 MG TAB PO SCH ×2 (08:29→21:40)
[2018-05-04] MEDS: Furosemide 20 MG TAB PO SCH ×2 (08:29→14:14)
[2018-05-04] MEDS ORDERED: Magnesium Sulfate 1 GM/2 ML VIAL IM SCH (10:15)
[2018-05-04 10:17] LABS: Anion Gap 6 mmol/L (10-20); BUN (Urea Nitrogen) 21 mg/dL (8.4-25.7); Calc. Creatinine Clearance 93 mL/min (70-130); Calcium 9.5 mg/dL (7.8-10.44); Carbon Dioxide 22 mmol/L (23-31); Chloride 102 mmol/L (98-107); Estimated GFR-MDRD 78; Glucose 97 mg/dL (80-115); Potassium 3.4 mmol/L (3.5-5.1); Sodium 127 mmol/L (136-145)
--- NOTE | 2018-05-04 12:32 | RAD ---
TWO VIEWS OF THE CHEST: COMPARISON: 04/30/18. HISTORY: CHF. FINDINGS: Two views of the chest show an enlarged but stable cardiomediastinal silhouette. There appears to be a small right pleural effusion. Bibasilar atelectasis is seen. IMPRESSION: Small right pleural effusion.
[2018-05-04] MEDS ORDERED: Potassium Chloride 20 MEQ TAB PO SCH (14:00)
--- NOTE | 2018-05-04 14:03 | PRG ---
DATE OF SERVICE: 05/04/2018 SUBJECTIVE: A 67-year-old gentleman being seen for hyponatremia. The patient denies any nausea, vom iting or chest pain. PHYSICAL EXAMINATION: GENERAL: Patient is awake, alert. VITAL SIGNS: Afebrile, pulse 85, breathing 16, blood pressure 150/72. OBJECTIVE: See above. Awake, alert, in no acute distress. GENERAL APPEARANCE AND MENTAL STATUS: Fair. HEAD/NECK: Normocephalic. Atraumatic. EYES: EOMI. No deformity. EARS: Clear. No ulcers. NOSE: Intact. No lesions. MOUTH: Clear. No discharge. THROAT: Clear. No exudate. LUNGS: Clear. No crackles. CARDIAC: S1, S2. No rub. ABDOMEN: Benign. BS+. GENITALIA/RECTUM: Dumont absent. BACK/EXTREMITIES: Edema 0+ Ulcer- NEUROLOGICAL: Alert and motor intact. SKIN: Rash- Bruise- LYMPHATICS: Edema- Ulcer- LABORATORY: Hemoglobin 9.8, potassium 3.4, creatinine 0.97, sodium 127, magnesium 1.3. ASSESSMENT AND RECOMMENDATIONS: 1. Hyponatremia, most likely pseudohyponatremia as the patient's osmolality is normal. The patient' s labs are pending, which was a send out. A ____ ____ would be the correct test which is not availabl e in this hospital. 2. Hypokalemia. Recommend 40 mEq of potassium replacement. 3. Hypomagnesemia; would recommend magnesium replacement. 4. Medications based on glomerular filtration rate are appropriate. I would recommend daily labs. I will sign off on this patient. Please reconsult as needed. 5. Adrenal insufficiency. I would defer the workup to the primary team.
--- NOTE | 2018-05-04 19:26 | PDOC.PN ---
- Subjective Encounter Start Date: 05/04/18 Encounter Start Time: 14:55 Subjective: pt up in bed feels much better - Objective Resuscitation Status: Resuscitation Status FULL:Full Resuscitation Vital Signs & Weight: Vital Signs (12 hours) Temp Pulse Resp BP BP Pulse Ox 05/04/18 18:26 74 12 92 L 05/04/18 14:00 98.3 F 76 18 158/72 H 91 L 05/04/18 12:00 98.3 F 76 18 158/72 H 91 L 05/04/18 08:00 92 L Weight Weight 190 lb 2 oz I&O: 05/03/18 05/04/18 05/05/18 06:59 06:59 06:59 Intake Total 900 1390 1000 Balance 900 1390 1000 Result Diagrams: 05/03/18 08:30 05/04/18 04:01 Phys Exam - Physical Examination Neck: no nodes, no JVD, supple, full ROM Respiratory: no wheezing, no rales, no rhonchi, wheezing present, clear to auscultation bilateral Cardiovascular: RRR, no significant murmur, no rub, gallop, irregular Gastrointestinal: soft, non-tender, no distention, positive bowel sounds Musculoskeletal: no edema, pulses present, edema present Dx/Plan (1) Acute respiratory failure with hypoxia Code(s): J96.01 - ACUTE RESPIRATORY FAILURE WITH HYPOXIA Status: Acute Comment: Improving (2) Sepsis Code(s): A41.9 - SEPSIS, UNSPECIFIED ORGANISM Status: Acute (3) Adrenal insufficiency Code(s): E27.40 - UNSPECIFIED ADRENOCORTICAL INSUFFICIENCY Status: Acute (4) Hyponatremia Code(s): E87.1 - HYPO-OSMOLALITY AND HYPONATREMIA Status: Acute - Plan * . pt's hyponatremia could be due to hctz and his underlying liver disease. We do not have previous labs to compare. Also his cortisol level was low but his bp is high normal. will check tsh, renin, aldostrone and ACTH. will also swab for viral since his cxr was not very impressive. His ef was 50-55%. His elevated protein could be due to dehydration. spep and upep has been sent will also send b2. He does have a hx of dvt unprovoked per his . Review of Systems - Review of Systems Respiratory: negative: Cough, Dry, Shortness of Breath, Hemoptysis, SOB with Excertion, Pleuritic Pain, Sputum, Wheezing Cardiovascular: negative: chest pain, palpitations, orthopnea, paroxysmal nocturnal dyspnea, edema, light headedness, other Gastrointestinal: negative: Nausea, Vomiting, Abdominal Pain, Diarrhea, Constipation, Melena, Hematochezia, Other Genitourinary: negative: Dysuria, Frequency, Incontinence, Hematuria, Retention , Other - Medications/Allergies Allergies/Adverse Reactions: Allergies Allergy/AdvReac Type Severity Reaction Status Date / Time morphine Allergy Verified 05/01/18 02:09 Medications: Current Medications Bisacodyl (Dulcolax) 10 mg PO DAILYPRN PRN PRN Reason: Constipation Ferrous Sulfate (Feosol) 325 mg PO BID [facility] Last Admin: 05/04/18 08:29 Dose: 325 mg Furosemide (Lasix) 20 mg PO 0900,1400 [facility] Last Admin: 05/04/18 14:14 Dose: 20 mg Levofloxacin (Levaquin) 500 mg PO 0600 [facility] Stop: 05/09/18 06:01 Last Admin: 05/04/18 05:49 Dose: 500 mg Losartan Potassium (Cozaar) 100 mg PO DAILY [facility] Last Admin: 05/04/18 08:28 Dose: 100 mg Magnesium Oxide (Magnesium Oxide) 400 mg PO DAILY [facility] Miscellaneous Medication (Pharmacy To Dose) 0 each IVPB PRN PRN PRN Reason: RENAL ABX Pharmacy to Dose Mometasone Furoate/Formoterol Fumar (Dulera 200 Mcg/5 Mcg Inhaler) 2 puff INH BID-RT [facility] Last Admin: 05/04/18 18:26 Dose: 2 puff Non-Formulary Medication (Carvedilol [Coreg]) 12.5 mg PO DAILY [facility] Pantoprazole Sodium (Protonix) 40 mg PO DAILY [facility] Last Admin: 05/04/18 08:29 Dose: 40 mg Rifaximin (Xifaxan) 550 mg PO BID [facility] Last Admin: 05/04/18 08:29 Dose: 550 mg Sodium Chloride (Flush - Normal Saline) 10 ml IVF Q12HR [facility] Last Admin: 05/04/18 08:29 Dose: Not Given Sodium Chloride (Flush - Normal Saline) 10 ml IVF PRN PRN PRN Reason: Saline Flush
--- NOTE | 2018-05-05 01:43 | CON ---
DATE OF CONSULTATION: 05/04/2018 REASON FOR CONSULTATION: Elevated protein in the blood. HISTORY OF PRESENT ILLNESS: A 67-year-old male with history of autoimmune hepatitis and liver cirrho sis, hypertension, renal-cell carcinoma presenting with pneumonia. The patient has been [facility] by Dr. Phillips for prothrombin gene mutation. 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 The patient was last seen by Dr. Phillips in 10/2017. Recently, the patient fe lt like he was coming down with flu for the last several days and things progressively got worse incl uding shortness of breath, where he felt like he could not catch his breath. He was also having subj ective fevers at home and a constant cough. The patient went to [facility] and was evaluated , and his oxygen saturation was low even on 4 liters. The patient was put on CPAP at that time. The patient had elevated blood pressure of 200 systolic, fever, and chest x-ray showed possible infiltra almaz, and the patient was transferred to [facility] for further workup. Chest x-ray dated 04/30/2018 showed a left lower lobe infiltrate. The patient was started on antibiotics and currently states caroline t he is feeling much better. Labs showed an elevated total protein with a low albumin and due to thi s wide gap, I was consulted to evaluate for possible multiple myeloma. The patient was seen by Dr. Belem marte in the clinic and had blood work done on 04/21/2018 for concern for multiple myeloma due to ext remely elevated immunoglobulins and anemia. The patient's IgG was 5559 with normal IgA and IgM. Tot al protein was 9.5 and albumin was 2. 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 The patient's hemoglobin is currently 9.8. REVIEW OF SYSTEMS: Ten-point review of systems is negative except as per HPI. PAST MEDICAL HISTORY: Autoimmune hepatitis, blood clots, renal-cell carcinoma, liver cirrhosis. FAMILY HISTORY: Noncontributory. 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 Denies tobacco, alcohol use, or illicit drugs. CURRENT MEDICATIONS: Reviewed. PHYSICAL EXAMINATION: VITAL SIGNS: Temperature 98.3, pulse 76, respirations 18, satting 91% on room air, blood pressure 15 8/72. GENERAL APPEARANCE: The patient is lying comfortably in bed in no acute distress. LUNGS: Mild rales in the left lung, otherwise clear to auscultation bilaterally. CARDIAC: Normal S1, S2. Regular rate and rhythm without murmurs, rubs, or gallops. ABDOMEN: Nondistended, nontender, and soft. EXTREMITIES: No edema. NEUROLOGIC: Cranial nerves II to III grossly intact. SKIN: Warm, dry, and intact. PSYCHIATRIC: Alert and oriented x3. EK-lead EKG is normal. LABORATORY DATA: White blood cells 10.6, hemoglobin 9.8, platelets 135. Sodium 127, BUN 21, creatin ine 0.97, total bilirubin 2.6, AST 38, ALT 15, alkaline phosphatase 78. BNP is 723.8. Albumin 1.4, serum total protein 7.9. 04/21/2018, IgG level 5559, IgA 270, IgM 121, total protein 9.5, albumin 2. Serum immunofixation showed polyclonal gammopathy. IgG kappa and lambda typing appear increased. IMAGING DATA: Chest x-ray dated 04/30/2018 shows a left lower lobe infiltrate. Chest x-ray dated shows a small right pleural effusion. ASSESSMENT AND PLAN: A 67-year-old gentleman with history of autoimmune hepatitis and liver cirrhosi s, multiple blood clots with prothrombin gene mutation, presenting to the hospital with pneumonia and suspicion for multiple myeloma. The patient was noted to have new anemia by Dr. Osei and suspicio n for myeloma. So, SPEP and immunofixation were sent and revealed a polyclonal gammopathy with extre garrett elevated IgG. The patient had a large protein gap, total protein of 9.5 and albumin of 2, which along with anemia raises suspicion for myeloma; however, with the SPEP and immunofixation showing a polyclonal gammopathy, this is not consistent with myeloma. This can be seen in infections and autoi mmune disease. The patient has a history of autoimmune hepatitis and had increase in his LFTs recent ly, which have improved as per Dr. Osei. UPEP has been ordered; however, this will likely not show a monoclonal protein given the serum findings. 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 T he patient should continue follow up with Dr. Osei for improvement in his hypergammaglobulinemia wi th improvement of his autoimmune disease. I have discussed this with Dr. Osei. We will follow up final labs and follow up peripherally. Thank you for this consult.
[2018-05-05 05:05] VITALS: BMI 29.7
[2018-05-05] MEDS ORDERED: Cosyntropin 250 MCG VIAL SLOW IVP SCH (08:00)
[2018-05-05] MEDS: Mometasone/Formoterol 120 PUFF INHALER INH SCH (08:20)
[2018-05-05] MEDS ORDERED: Magnesium Oxide 400 MG TAB PO SCH (09:00)
[2018-05-05] MEDS ORDERED: Carvedilol 6.25 MG TAB PO SCH (09:00)
[2018-05-05] MEDS: Ferrous Sulfate 325 MG TAB PO SCH (09:22)
[2018-05-05] MEDS: Furosemide 20 MG TAB PO SCH ×2 (09:22→14:19)
[2018-05-05] MEDS: Rifaximin 550 MG TAB PO SCH (09:23)
[2018-05-05] MEDS: Losartan 25 MG TAB PO SCH (09:24)
[2018-05-05 09:25] VITALS: BP 156/70
[2018-05-05 09:31] VITALS: TEMP 98.8
[2018-05-05 10:03] LABS: Anion Gap 6 mmol/L (10-20); BUN (Urea Nitrogen) 20 mg/dL (8.4-25.7); Calc. Creatinine Clearance 105 mL/min (70-130); Calcium 9.5 mg/dL (7.8-10.44); Carbon Dioxide 23 mmol/L (23-31); Chloride 104 mmol/L (98-107); Estimated GFR-MDRD 82; Glucose 87 mg/dL (80-115); Sodium 129 mmol/L (136-145)
[2018-05-05 14:12] LABS: ANA Symphony (Qualitative) Negative (Negative); EliA Vaculitis New Method **** NEW METHOD ****; Glomerular Basemt Membrane Ab 5.5 EliAU/mL (<7 Negative); Mitochondrial Ab 2.2 U/mL (<4 Negative); dsDNA IgG Antibody 5.1 IU/mL (<10 Negative)
--- NOTE | 2018-05-05 15:34 | CT ---
CT ARTERIOGRAM CHEST WITH IV CONTRAST AND 3D MIP IMAGIN05/05/18 HISTORY: Dyspnea. Hemoptysis. FINDINGS: No comparison. There is good contrast opacification of the pulmonary arteries and thoracic aorta with normal branchi ng of the great vessels. Mild arterial calcification. Patchy infiltrates are present throughout each lower lobe with patchy areas of ground glass opacity involving the right upper lobe. No lobar consoli dation, pneumothorax, or bulky mediastinal adenopathy. Reactive appearing lymph nodes of borderline s ize are present throughout the mediastinum, each axilla, and the partially visualized upper abdomen. Cirrhotic appearance of the liver is also evident. IMPRESSION: No CT evidence of pulmonary embolus. Patchy bibasilar infiltrates and ground glass right upper lobe parenchymal opacity may reflect multif ocal pneumonitis and/or atelectasis. POS: [facility]
--- NOTE | 2018-05-05 17:29 | PRG ---
DATE OF SERVICE: 05/05/2018 SUBJECTIVE: A 67-year-old gentleman being seen for hyponatremia. The patient denies any nausea, vom iting or chest pain. PHYSICAL EXAMINATION: GENERAL: Patient is awake, alert. VITAL SIGNS: Afebrile, pulse 76, breathing 16, blood pressure 136/70. HEAD/NECK: Normocephalic. Atraumatic. EYES: EOMI. No deformity. EARS: Clear. No ulcers. NOSE: Intact. No lesions. MOUTH: Clear. No discharge. THROAT: Clear. No exudate. LUNGS: Clear. No crackles. CARDIAC: S1, S2. No rub. ABDOMEN: Benign. BS+. GENITALIA/RECTUM: Dumont absent. BACK/EXTREMITIES: Edema 0+ Ulcer- NEUROLOGICAL: Alert and motor intact. SKIN: Rash- Bruise- LYMPHATICS: Edema- Ulcer- LABORATORY DATA: Show hemoglobin 9.8, sodium 129, creatinine 0.3. ASSESSMENT AND RECOMMENDATIONS: 1. Chronic kidney disease stage 2, stable. 2. Hypertension, stable. 3. Anemia, stable. 4. Hypomagnesemia. Would recommend checking magnesium if patient's sodium is within range with norm al osmolality. The patient has pseudohyponatremia. I will sign off on this patient. Please reconsu lt as needed.
--- NOTE | 2018-05-06 12:52 | DIS ---
DATE OF ADMISSION: 05/01/2018 DATE OF DISCHARGE: 05/05/2018 DISCHARGE DIAGNOSES: 1. Sepsis. 2. Pneumonia. 3. Most likely adrenal insufficiency. 4. Elevated protein. 5. History of autoimmune hepatitis. 6. Hyponatremia. HOSPITAL COURSE: The patient is a very pleasant 67-year-old male who initially presented to the hosp ital with severe shortness of breath. The patient initially was put on BiPAP and was thought to have possible pneumonia since he did have a fever of 101.1. He was initially treated with broad-spectrum antibiotics. Pulmonology, Infectious Disease, Oncology, and Cardiology have seen this patient. The patient also underwent an echocardiogram, which indicated an EF of 50% -55% with [id number] mi tral regurgitation, moderate thickened leaflets, and indicated some diastolic dysfunction. The patie nt also initially was found hyponatremic. At this time, serum cortisol and TSH were checked. TSH wa s normal, but serum cortisol was very low, it was 2.4. At this time, I did do a cosyntropin stim almaz t, which the response was suboptimal. In 30 minutes, it was 8.9; 60 minutes, it was 9.5; and 90 aly almaz, it was 10.1. However, the patient at this time was not hypotensive. He was asymptomatic. I di d not pursue adding of any mineralocorticoid steroid at this time, because I do not think clinically the patient needed it. I did refer the patient to an velvet cutter and I gave the patient's t he phone number to follow up with the velvet cutter for these abnormal values. The patient was on steroid about a year ago; however, currently has not been on steroids. For his elevated protein, he underwent an SPEP and UPEP with light chain, and at this time, Oncology was consulted and Oncology re commended that they did not feel that the patient had multiple myeloma; however, he will follow up as an outpatient. In regard to his pneumonia, given his subtle appearance on the chest x-ray and his h istory of DVTs, and the patient also was having some hemoptysis during the hospital stay, I did do a CTA of the chest to rule out a PE. The patient did not have a PE. His CAT scans however did indicat e patchy bibasilar infiltrate with ground glass right upper lobe parenchymal opacities, most likely m ultifactorial pneumonitis or atelectasis. The patient was discharged home with p.o. antibiotics. I also spoke with GI since he has been following GI very closely for his autoimmune hepatitis, an d I re-ordered P-ANCA, C-ANCA, and also other autoimmune profile prior to his discharge and he will f ollow up with all of these with GI as an outpatient. DISCHARGE MEDICATIONS: His medications will be as following: Coreg 12.5 daily, rifaximin 550 b.i.d. , iron 325 b.i.d., omeprazole 20 mg daily, mag oxide 400 mg daily, Cozaar 100 mg daily, levofloxacin 500 mg for another 5 days, and Lasix 20 mg q.a.m. His hydrochlorothiazide was discontinued given his hyponatremia. PHYSICAL EXAMINATION: VITAL SIGNS: 98.8, 156/70, 16, 99% on room air. GENERAL: He is awake, alert, oriented x3, does not appear in distress. CARDIOVASCULAR: S1, S2 present. No murmurs, rubs, or gallops. ABDOMEN: Soft, nontender. Bowel sounds are present x2. EXTREMITIES: No edema. Again, he will follow up with his primary care doctor as an outpatient and also with GI, and Endocrin e number was provided for the patient.
[2018-05-06 15:25] LABS: IgA - Total IgA (Sendout) 255 mg/dL (61-437); Immunoglobulin - G (Sendout) 4731 mg/dL (700-1600); Immunoglobulin - M (Sendout) 107 mg/dL (20-172)
== END 2018-05-05 18:55 | disposition home or self-care (01) | DRG 871 ==
LOC: SCSER 21:39 → ONC 05-01 00:54 → IMCU/EMU 05-01 01:04 → ONC 05-01 14:21
PROVIDERS: ADMIT Internal Medicine; ATTEND Internal Medicine
DX: A41.9 Sepsis, unspecified organism (principal); J18.9 Pneumonia, unspecified organism; I33.0 Acute and subacute infective endocarditis; J96.01 Acute respiratory failure with hypoxia; I50.31 Acute diastolic (congestive) heart failure; E87.1 Hypo-osmolality and hyponatremia; E27.40 Unspecified adrenocortical insufficiency; I74.8 Embolism and thrombosis of other arteries; K74.60 Unspecified cirrhosis of liver; K21.9 Gastro-esophageal reflux disease without esophagitis; I11.0 Hypertensive heart disease with heart failure; E87.6 Hypokalemia; E83.42 Hypomagnesemia
CPT/HCPCS: 36415; 71046; 71275; 80048; 80053; 80061; 80400; 81003; 81015; 82024; 82088; 82232; 82533; 82553; 82805; 83516; 83520; 83605; 83735; 83880; 83930; 83935; 84244; 84443; 84484; 85025; 85610; 85652; 85730; 86038; 86140; 86225; 86256; 86334; 86335; 87040; 87086; 87633; 87798; 87899; 93005; 93306; 93798; 94660; 94664; 94760; 96365; 96367; 96375; A4216; J0456; J0696; J0834; J1940; J1956; J3475; J7050; J7620